=== PATIENT | female | born 1965 | race Two or more races ===

== ENCOUNTER → 2018-12-07 | Outpatient (CLI) | payer SELFPAY ==
[2018-12-07 13:32] LABS: BASO # 0.1 10^3/uL (0.0-0.2); BASO % 0.8 % (0.0-1.0); EOS # 0.3 10^3/uL (0.0-0.50); EOS % 3.5 % (0.0-3.0); HEMATOCRIT 44.4 % (36.0-47.0); HEMOGLOBIN 14.6 g/dl (12.0-15.5); LYMPH # 2.3 10^3/uL (1.5-4.5); LYMPH % 31.7 % (24.0-44.0); MEAN CORPUSCULAR HEMOGLOBIN 34.4 pg (27.0-33.0); MEAN CORPUSCULAR HGB CONC 32.9 g/dl (32.0-36.5); MEAN CORPUSCULAR VOLUME 104.7 fl (80.0-96.0); MONO # 0.5 10^3/uL (0.0-0.8); MONO % 7.3 % (0.0-5.0); NEUTROPHILS % 56.4 % (36.0-66.0); PLATELET COUNT, AUTOMATED 243 10^3/uL (150-450); RED BLOOD COUNT 4.24 10^6/uL (4.00-5.40); WHITE BLOOD COUNT 7.1 10^3/uL (4.0-10.0)
[2018-12-07 13:43] LABS: ALBUMIN 3.7 GM/DL (3.2-5.2); ALT/SGPT 38 U/L (12-78); BILIRUBIN,TOTAL 0.6 MG/DL (0.2-1.0); BLOOD UREA NITROGEN 21 MG/DL (7-18); CALCIUM LEVEL 8.8 MG/DL (8.5-10.1); CARBON DIOXIDE LEVEL 32 MEQ/L (21-32); CHLORIDE LEVEL 101 MEQ/L (98-107); CHOLESTEROL LEVEL 236 MG/DL (<200); CHOLESTEROL RISK RATIO 4.452 (<5); CREATININE FOR GFR 0.81 MG/DL (0.55-1.30); GLOMERULAR FILTRATION RATE > 60.0 (>51); GLUCOSE, FASTING 176 MG/DL (70-100); HDL CHOLESTEROL 53 MG/DL (>40); LDL CHOLESTEROL 157 MG/DL (<100); NON-HDL-C 183 MG/DL; POTASSIUM SERUM 4.5 MEQ/L (3.5-5.1); SODIUM LEVEL 138 MEQ/L (136-145); TOTAL PROTEIN 7.5 GM/DL (6.4-8.2); TRIGLYCERIDES LEVEL 129 MG/DL (<150)
== END ==
LOC: M WUC 10:52
PROVIDERS: ATTEND Physician Assistant Medical
DX: I10 Essential (primary) hypertension (principal); E78.2 Mixed hyperlipidemia; E55.9 Vitamin D deficiency, unspecified

== ENCOUNTER → 2019-07-29 | Outpatient (REF) | payer SELFPAY ==
[2019-07-29 16:59] LABS: HEMOGLOBIN A1c 8.2 %
== END ==
LOC: M SFHCADAM 13:38
PROVIDERS: ATTEND Physician Assistant Medical
DX: R73.01 Impaired fasting glucose (principal)

== ENCOUNTER → 2020-11-22 | Outpatient (CLI) | payer SELFPAY | LOC: M ADAMS 12:02 | PROVIDERS: ATTEND Physician Assistant Medical | DX: R20.0 Anesthesia of skin (principal); M54.41 Lumbago with sciatica, right side ==

== ENCOUNTER → 2021-05-23 | Outpatient (REF) | payer SELFPAY ==
[2021-05-23 13:24] LABS: HEMOGLOBIN A1c 6.5 %
[2021-05-23 13:39] LABS: BILIRUBIN,TOTAL 0.5 MG/DL (0.2-1.0); CALCIUM LEVEL 9.7 MG/DL (8.5-10.1); CREATININE FOR GFR 1.09 MG/DL (0.55-1.30); GLOMERULAR FILTRATION RATE 55.1 (>51); POTASSIUM SERUM 4.4 MEQ/L (3.5-5.1); TOTAL PROTEIN 7.5 GM/DL (6.4-8.2)
[2021-05-23 13:44] LABS: CREATININE, URINE 83.8 MG/DL; MALB URINE SIEMENS 17.4 MG/L; MAU/CREAT RATIO 20.7 MCG/MG (0.0-30.0)
== END ==
LOC: M SFHCADAM 09:21
PROVIDERS: ATTEND Physician Assistant Medical
DX: E11.9 Type 2 diabetes mellitus without complications (principal)

== ENCOUNTER → 2023-12-04 | Outpatient (REF) | payer SELFPAY ==
[2023-12-04 14:28] LABS: ALKALINE PHOSPHATASE 94 U/L (46-116); ALT/SGPT 21 U/L (7.0-40); AST/SGOT 14 U/L (<34); BILIRUBIN,TOTAL 0.5 MG/DL (0.3-1.2); BLOOD UREA NITROGEN 28 MG/DL (9-23); CALCIUM LEVEL 9.7 MG/DL (8.3-10.6); CARBON DIOXIDE LEVEL 30 MMOL/L (20-31); CHLORIDE LEVEL 100 MMOL/L (98-107); CHOLESTEROL LEVEL 230 MG/DL (<200); CHOLESTEROL RISK RATIO 4.51 (<5); GLOMERULAR FILTRATION RATE > 60.0 (>45); GLUCOSE, FASTING 130 MG/DL (74-106); HDL CHOLESTEROL 50.9 MG/DL (>40); LDL CHOLESTEROL 153.3 MG/DL (<100); NON-HDL-C 179.1 MG/DL; POTASSIUM SERUM 4.6 MMOL/L (3.5-5.1); SODIUM LEVEL 136 MMOL/L (136-145); TRIGLYCERIDES LEVEL 129 MG/DL (<150)
[2023-12-04 14:34] LABS: HEMATOCRIT 42.9 % (36.0-47.0); HEMOGLOBIN 14.4 g/dl (12.0-15.5); MEAN CORPUSCULAR HEMOGLOBIN 33.6 pg (27.0-33.0); MEAN CORPUSCULAR HGB CONC 33.6 g/dl (32.0-36.5); MEAN CORPUSCULAR VOLUME 100.2 fl (80.0-96.0); PLATELET COUNT, AUTOMATED 300 10^3/uL (150-450); RED BLOOD COUNT 4.28 10^6/uL (4.00-5.40); WHITE BLOOD COUNT 7.4 10^3/uL (4.0-10.0)
[2023-12-04 14:53] LABS: HEMOGLOBIN A1c 6.8 % (4.0-6.0)
== END ==
LOC: M SFHCADAM 09:23
PROVIDERS: ATTEND Physician Assistant Medical
DX: E78.2 Mixed hyperlipidemia (principal); E11.9 Type 2 diabetes mellitus without complications; I10 Essential (primary) hypertension

== ENCOUNTER → 2024-08-19 | Outpatient (REF) | payer SELFPAY ==
[2024-08-19 18:20] LABS: ALBUMIN 4.1 G/DL (3.2-5.2); BILIRUBIN,TOTAL 0.6 MG/DL (0.3-1.2); CALCIUM LEVEL 9.6 MG/DL (8.3-10.6); CHOLESTEROL RISK RATIO 4.04 (<5); CREATININE FOR GFR 1.44 MG/DL (0.55-1.30); GLOMERULAR FILTRATION RATE 39.5 (>45); HDL CHOLESTEROL 49.2 MG/DL (>40); NON-HDL-C 149.8 MG/DL; POTASSIUM SERUM 4.5 MMOL/L (3.5-5.1); TOTAL PROTEIN 7.3 G/DL (5.7-8.2)
[2024-08-19 18:39] LABS: HEMOGLOBIN A1c 5.9 % (4.0-6.0)
== END ==
LOC: M SFHCADAM 11:24
PROVIDERS: ATTEND Physician Assistant Medical
DX: E11.9 Type 2 diabetes mellitus without complications (principal); E78.2 Mixed hyperlipidemia

== ENCOUNTER → 2024-08-29 | Outpatient (REF) | payer OTHER, SELFPAY ==
[2024-08-29 15:57] LABS: CALCIUM LEVEL 8.8 MG/DL (8.3-10.6); CREATININE FOR GFR 1.25 MG/DL (0.55-1.30); GLOMERULAR FILTRATION RATE 46.5 (>45); POTASSIUM SERUM 3.9 MMOL/L (3.5-5.1)
== END ==
LOC: M SFHCADAM 07:56
PROVIDERS: ATTEND Physician Assistant Medical
DX: I10 Essential (primary) hypertension (principal); N17.9 Acute kidney failure, unspecified

== ENCOUNTER → 2024-09-11 | Outpatient (CLI) | payer OTHER, SELFPAY | LOC: M RAD 15:06 | PROVIDERS: ATTEND Physician Assistant Medical | DX: I10 Essential (primary) hypertension (principal); N17.9 Acute kidney failure, unspecified ==